=== PATIENT | female | born 2005 | race Caucasian/White ===

== ENCOUNTER 2025-04-29 18:23 | Emergency (ER) | payer OTHER, SELFPAY ==
[2025-04-29] VITALS (8 sets, daily range): BP systolic 110–129; BP diastolic 57–86; PULSE 107–126; RESP 14–18; TEMP 37.2–37.7; O2SAT 98–100
--- NOTE | ~2025-04-29 | US_ITS ---
EXAMINATION: Ultrasound pelvis, complete: DATE: 04/29/2025 INDICATION: Right lower quadrant pain. History of ovarian cyst. Last menstrual period on 04/15/2025. TECHNIQUE: Transabdominal pelvic ultrasound with Doppler. COMPARISON: None. FINDINGS: Normal size uterus measuring the length of 7.5 cm and a width of 4.2 cm. Endometrium measures 2 mm in thickness. Ovaries are normal in size measuring volume of 12 cc on the right and 7 cc on the left. 2 cm follicle in the right ovary. Perfusion noted in both ovaries. No free fluid. IMPRESSION: 1. Normal size uterus. No endometrial thickening. 2. Normal size ovaries. 2 cm follicle in the right ovary. Normal perfusion of both ovaries. 3. No free fluid in the pelvic cul-de-sac. Reviewed, dictated and finalized at location T. ONARY FUNCTION TECHNOLOGIST IMPRESSION: 1. Normal size uterus. No endometrial thickening. 2. Normal size ovaries. 2 cm follicle in the right ovary. Normal perfusion of b oth ovaries. 3. No free fluid in the pelvic cul-de-sac.
--- NOTE | ~2025-04-29 | CT_ITS ---
EXAMINATION: CT abdomen pelvis w con DATE: 04/29/2025 22:18 INDICATION: Right lower quadrant abdominal pain. TECHNIQUE: Computed tomography (CT) of the abdomen and pelvis was performed with 100 mL Omnipaque 350 intravenous contrast. Automated exposure control and iterative reconstruction technique were employed. The dose-length product was 350.81 mGy-cm. COMPARISON: Pelvis ultrasound 04/29/2025 FINDINGS: The visualized portions of lung bases demonstrate mild atelectasis. No pleural effusion. The heart size is normal. No pericardial effusion. The liver, gallbladder, spleen, pancreas, adrenal glands, and kidneys are normal. There are no dilated loops of bowel. The appendix is normal. There is physiologic fluid in the pelvis. There is dextroscoliosis of thoracic spine. IMPRESSION: 1. No etiology for the patient's symptoms. Reviewed, dictated and finalized at location E. ING MIXTURE CARRIER
--- OUTSIDE RECORDS SUMMARY | 2025-04-29 19:15 | XMS_ITS | Clinical Summary ---
Author Organization [facility] Address [address] [place] [address] Care Team Providers Care Underground Mining Section Foreman Name Role Phone Magdy Byrne MD Unavailable [phone] Parris Hein MD Primary Care Provider [phone] [facility],non-owned Affiliates and Associated Physician Practices is amultiple site organization consisting of ambulatory clinics and hospital sitesin [place], [place], [place] and [place]. This disclosure is being madepursuant to the Care Everywhere program and may not contain all information available regarding this patient. Last updated 18.[facility] Allergies No known active allergies Medications * This document contains information received from the source organization and may not represent a complete record from that organization. * Be aware that medications may not be up to date on this document. Alwaysverify current medications with the patient. melatonin 3 MG tabletIndicatio ns:Insomnia Take 10 mg by mouth at bedtime Reasons: Trouble Sleeping Active propranolol (INDERAL) 10 MG tablet Take 1 (one) tablet by mouth as needed 1 Active naproxen (NAPROSYN) 500 MG tablet TAKE 1 TABLET BY MOUTH TWICE A DAY WITH MEALS 2 Active lamoTRIgine (LAMICTAL) 100 MG tablet Take 1 (one) tablet by mouth at bedtime 2 Active DULoxetine (CYMBALTA) 60 MG capsule Take 1 (one) capsule by mouth at bedtime Delayed Release Active rizatriptan (MAXALT) 5 MG tablet Take 1 (one) tablet by mouth 2 times daily as needed for Migraine 9 tablet 3 2 Active Additional Information Patient not taking.Reported on 01/02/2024 baclofen (Lioresal) 20 MG tablet TAKE 1 TABLET (20 MG TOTAL) BY MOUTH 3 (THREE) TIMES DAILY FOR 30 DAYS. 2 Active cetirizine (ZyrTEC) 10 MG tablet Take 1 (one) tablet by mouth once daily 3 Active ferrous sulfate 325 (65 FE) MG tablet TAKE 1 TABLET BY MOUTH DAILY WITH BREAKFAST AVOID DAIRY FOR 1 HOUR, TAKE WITH CITRUS JUICE 3 Active buPROPion XL 24hr (Wellbutrin-XL) 150 MG tablet TAKE 1 TABLET EVERY DAY BY ORAL ROUTE IN THE MORNING. 3 Active vitamin D3 (Cholecalcifero l) 25 MCG (1000 UNITS) tablet TAKE 2 TABLETS (2,000 UNITS TOTAL) BY MOUTH DAILY Active Ergocalciferol (VITAMIN D2 PO) 76735 units every week by oral route. Active diazePAM (Valium) 5 MG tablet Take 1 (one) tablet by mouth every 6 hours as needed 2 Active etonogestrel (Nexplanon) 68 MG implant Inject by subcutaneous route. 4 Active hydrOXYzine HCl (Atarax) 25 MG tablet 25 mg as needed by oral route. 2 Active meloxicam (Mobic) 7.5 MG tablet Take 1 (one) tablet by mouth once daily 3 Active pseudoephedrine CR 12hr (Sudafed) 120 MG tablet Take 1 (one) tablet by mouth every 12 hours 4 Active Active Problems Patient Care Coordination No te Formatting of this note migh t be different from the original. Do you have any cultural preferences or concerns? No 09/14/21 Problem Noted Date Diagnosed Date Palpitations 04/22/2021 Post concussive syndrome 02/25/2021 Assessment & Plan (02/25/2021 5:46 PM CDT): Ej Vargas had a concussion in May of 2020. Initially had increased headaches, but they are now back to baseline. Over the last few months, she has had a worsening of her anxiety, however due to time elapsed from concussion, this is not likely to be secondary to her concussion. She was previously prescribed nortriptyline for headache prevention, but this medication was stopped in order to have better options to treat her anxiety disorder. - discussed sleep hygiene - continue to follow up with psychiatry regarding anxiety disorder - referred to Dr. Paez for headaches - recommended 25 minutes of cardiovascular exercise daily Generalized anxiety disorder 10/10/2020 Bipolar 1 disorder, mixed, moderate 10/10/2020 Severe episode of recurrent major depressive disorder, without psychotic features 09/26/2020 Patellofemoral arthralgia of both knees 03/22/20 18 Pain in joint, ankle and foot 01/02/2017 Resolved Problems Problem Noted Date Diagnosed Date Resolved Date Suicidal ideation 10/07/2020 10/09/2020 Social History Tobacco Use Types Packs/Day Years Used Date Smoking Tobacco: Never Passive Smoke Exposure: Yes Smokeless Tobacco: Never Tobacco Cessation:Counseling Given: Not Answered Alcohol Use Standard Drinks/Week Comments Never 0 (1 standard drink = 0.6 oz pur e alcohol) pt not verbalizing AUDIT-C Answer Date Recorded Q1: How often do you have a drink containing alc ohol? Never 06/04/2020 Average Number of Drinks Not on file 021 Frequency of Binge Drinking Not on file 05/22 PHQ-2 Answer Date Recorded PHQ2 TOTAL SCORE 2 10/07/2020 Comments No Sex and Gender Information Value Date Recorded Sex Assigned at Not on file Legal Sex Female 5:44 AM EMERGENCY PLANNER Gender Identity Not on file Sexual Orientation Not on file Last Filed Vital Signs Vital Sign Reading Time Taken Comments Blood Pressure 127/86 01/30/2024 1:02 PM CDT Pulse 105 01/30/2024 1:02 PM CDT Temperature 35.9 C (96.7 F) 01/02/2024 11:11 AM CDT Respiratory Rate 16 04/22/2021 10:10 AM EMERGENCY PLANNER Oxygen Saturation 99% 01/02/2024 11:11 AM CDT Inhaled Oxygen Concentration - - Weight 77.6 kg (171 lb) 01/30/2024 1:02 PM CDT Height 165.1 cm (5' 5) 01/02/2024 11:11 AM CDT Body Mass Index 28.46 01/02/2024 11:11 AM CDT Plan of Treatment Health Maintenance Due Date Last Done Comments HIV SCREENING 2020 HPV VACCINE (1 - 3-dose series) 2020 CHLAMYDIA/GONORRHEA SCREENING 2021 MENINGOCOCCAL (Group B) VACCINE SHARED DECISION-MAKING (1 of 2 - Standard) 2021 HEPATITIS C SCREENING 04/07/2023 DTAP/TDAP/TD VACCINES (1 - Tdap) 2024 HEPATITIS B VACCINE (1 of 3 - 19+ 3-dose series) 2024 COVID-19 VACCINE (3 - 2024-2 6 season) 2025 11/02/2020, 10/12/2020 INFLUENZA VACCINE (#1) 2025 ZOSTER VACCINE (1 of 2) 2055 HIB VACCINE Aged Out No longer eligi ble based on patient's age to complete this topic MENINGOCOCCAL GROUPS A/C/Y/W VACCINE Aged Out No longer eligible b ased on patient's age to complete this topic PNEUMOCOCCAL VACCINE Aged Out No long er eligible based on patient's age to complete this topic Insurance [facility] Advance Directives * Full Code (Latest Code Status on File) Date Activated Date Inactivated Comments 10/07/2020 12:01 PM 10/09/2020 3:56 PM * Full Code Date Activated Date Inactivated Comments 09/26/2020 4:28 PM 09/26/2020 8:47 PM Care Teams [employer] Foreman Relationship Specialty Start Date End Date Parris Hein MD [address] [place] [id number] PCP - General 02/14/22 Magdy Byrne MD [address] [place] [address] Pediatrics 11/12/20
--- OUTSIDE RECORDS SUMMARY | 2025-04-29 19:15 | XMS_ITS | Clinical Summary ---
Author Organization [facility] Address [address] [place] [address] Care Team Providers Care Province Archivist Name Role Phone Unavailable Primary Care Provider Unavailabl e Immunizations Immunization Administration Dates Next Due Covid-19, Mrna, Lnp-s, Pf, 30 Mcg/0.3 Ml Dose (P fizer) 11/02/2020,10/12/2020 Social History Tobacco Use Types Packs/Day Years Used Date Smoking Tobacco: Never Assessed Comments Unknown Sex and Gender Information Value Date Recorded Sex Assigned at Not on file Legal Sex Female 5:33 PM CDT Gender Identity Not on file Sexual Orientation Not on file Last Filed Vital Signs Vital Sign Reading Time Taken Comments Blood Pressure - - Pulse - - Temperature - - Respiratory Rate - - Oxygen Saturation - - Inhaled Oxygen Concentration - - Weight 58.1 kg (128 lb 1 oz) 11/02/2020 10:51 AM CDT Height - - Body Mass Index - - Plan of Treatment Health Maintenance Due Date Last Done Comments Hepatitis C Virus (HCV) Screening 2005 Human Papillomavirus (HPV) Immunization (2 - 2-dose series) 06/21/2017 12/19/2016 Meningococcal B Immunization (1 of 2 - Standard) 2021 Influenza Immunization (#1) 2025 SARS-COV-2 Immunization (3 - season) 2025 11/02/2020, 10/12/2020 Respiratory Syncytial Virus (RSV) Immunization (Adult) (1 - 1-dose 75+ series) 2080 Polio (IPV) Immunization Discontinued , 2005, 2005 Hepatitis B Immunization Completed 006, 2005, 2005, Additional history exists Pneumococcal Immunization Combined Completed 07/24/2006, 2005, 2005, Additional history exists Measles Mumps Rubella (MMR) Immunization Discontinued 04/12/2010, 07/24/2006 Varicella Immunization Completed 04/12/2010, 2005 DTaP/Tdap/Td Immunization Discontinued 2016, 04/12/2010, 04/01/2010, Additional history exists Hepatitis A Immunization Discontinued 017, 04/23/2007, 10/23/2006 Meningococcal Immunization (ACWY) Aged Out 12/19/2016 No longer eligible based on patient's age to complete this topic TdaP Immunization Completed 12/19/2016 Rotavirus Immunization Aged Out No lo nger eligible based on patient's age to complete this topic
[2025-04-29] MEDS: LACTATED RINGERS 1,000 ML 999 ML IV CONT ×2 (20:29→20:51)
[2025-04-29 20:35] LABS: BEDSIDEPREGUCG Negative (Negative)
[2025-04-29 20:37] LABS: Hematocrit 39.2 % (37.0-47.0); Hemoglobin 13.0 g/dL (12.0-15.0); Immature Granulocyte Percent A 0.2 % (0-0.5); Lymphocytes Absolute Auto 0.38 K/mm3 (0.9-3.2); Mean Corpuscular HGB Conc 33.2 g/dl (32-36); Mean Corpuscular Hemoglobin 31.7 pg (26-34); Mean Corpuscular Volume 95.6 fl (80-100); Nucleated Red Blood Cells Absolute Auto 0.000 K/mm3 (0.0-0.012); Nucleated Red Blood Cells Perc 0.0 % (0.0-0.2); Platelet Count Result 216 k/mm3 (150-375); Red Blood Count 4.10 M/mm3 (4.2-5.4); White Blood Count 4.3 K/mm3 (4.5-10.0)
[2025-04-29 20:41] LABS: Add Urine Microscopic? YES; Appearance Urine Clear (Clear); Glucose Urine UA Negative (Negative); Leukocyte Esterase Ur Trace LEU/UL (Negative); Nitrate Urine Negative (Negative); Non Pathogenic Casts 0-2; Specific Grav Ur 1.027 (1.001-1.035)
[2025-04-29 20:48] LABS: Alanine Aminotransferase 16 U/L (6-35); Albumin Level 4.6 g/dL (3.5-5.1); Alkaline Phosphatase 78 U/L (38-126); Anion Gap 10 mmol/L (4-12); Aspartate Amino Transferase 22 U/L (14-36); Bilirubin,Total 0.5 mg/dL (0.2-1.3); Blood Urea Nitrogen 7 mg/dL (7-17); Calcium 9.1 mg/dL (8.4-10.2); Carbon Dioxide 20 mmol/L (22-30); Chloride 104 mmol/L (98-107); Estimated CRCL calculation 100 ml/min; Estimated Glomerular Filt Rate > 60; Glucose 98 mg/dL (65-110); Potassium 3.6 mmol/L (3.4-5.0); Sodium 134 mmol/L (137-145); Total Protein 7.4 g/dL (6.3-8.2)
--- OUTSIDE RECORDS SUMMARY | 2025-04-29 20:48 | XMS_ITS | Clinical Summary ---
Author Organization [facility] Address [address] [place] [address] Care Team Providers Care Child Monitor Name Role Phone Magdy Byrne MD Unavailable [phone] Parris Hein MD Primary Care Provider [phone] Source Comments [facility],non-owned Affiliates and Associated Physician Practices is amultiple site organization consisting of ambulatory clinics and hospital sitesin [place], [place], [place] and [place]. This disclosure is being madepursuant to the Care Everywhere program and may not contain all information available regarding this patient. Last updated 18.[facility] Allergies No known active allergies Medications * [...] MOUTH DAILY Active Ergocalciferol (VITAMIN D2 PO) 71365 units every week by oral route. Active [...] on file Legal Sex Female 5:44 AM HEALTHCARE CONSULTANT Gender Identity Not on file Sexual Orientation Not on file Last Filed Vital Signs Vital Sign Reading Time Taken Comments Blood Pressure 127/86 01/30/2024 1:02 PM CDT Pulse 105 01/30/2024 1:02 PM CDT Temperature 35.9 C (96.7 F) 01/02/2024 11:11 AM CDT Respiratory Rate 16 04/22/2021 10:10 AM HEALTHCARE CONSULTANT Oxygen Saturation 99% 01/02/2024 11:11 AM CDT [...] patient's age to complete this topic Insurance [facility] Advance Directives * Full Code (Latest Code Status on File) Date Activated Date Inactivated Comments 10/07/2020 12:01 PM 10/09/2020 3:56 PM * Full Code Date Activated Date Inactivated Comments 09/26/2020 4:28 PM 09/26/2020 8:47 PM Care Teams Child Monitor Relationship Specialty Start Date End Date Parris Hein MD [address] [place] [id number] PCP - General 02/14/22 Magdy Byrne MD [address] [place] [address] Pediatrics 11/12/20
--- OUTSIDE RECORDS SUMMARY | 2025-04-29 20:48 | XMS_ITS | Data Portability ---
Author Organization [employer] , [facility] Address [address] [place] [address] Assessment Encounter Date Assessment Date Assessment LastModified by Organization Details LastModified Time 07/27/2023 07/27/2023 The patient is an 18-year-old female seeking a reliable contraceptive method. She has chosen to have the Nexplanon device inserted. She has been informed of the possible side effects, such as abnormal bleeding and potential signs of infection. The patient understands the instructions given and has no further questions at this time. Not available 07/27/2023 14:43:51 Plan of Treatment Reminders Order Date Submit Date Provider Last Modified By Organization Details Last Modified Time Details Appointments None recorded. Lab bacterial vaginosis + vaginitis panel, vaginal 2023 [facility], [address] [place] [address], [address], 16:14:13 Referral None recorded. Procedures None recorded. Surgeries None recorded. Imaging US, transvagina l 2023 SHAKIRA Not available 20:13:01 Medication Orders ibuprofen 600 mg tablet 2023 [facility] [id number] [facility] [place] [address] [place], [address], 4 12:11:16 ibuprofen 800 mg tablet 2023 024 [facility] [place], [address], 15:23:45 Nexplanon 68 mg subdermal implant 2023 024 [facility] [place], [address], 14:51:05 Patient TargetsNo targets recorded. Patient Instructions Encounter Date Encounter Id Patient Instructions Last Modified By Organization Details Last Modified Time 07/27/2023 [id number] implant for marylin h control: care instructions Not available 07/27/2023 14:51:05 - Use protection for two weeks after the Nexplanon insertion - Expect abnormal bleeding for the next six to nine months - Contact the clinic if bleeding persists for more than 14 days or if signs of infection are present - Avoid lifting heavy objects after the procedure - Follow up as needed or if any concerns arise [email or web address] Not available 07/27/2023 14:41:13 I discussed the differential diagnosis, risks, benefits, and follow-up care for the Nexplanon insertion with the patient. We also discussed the possibility of abnormal bleeding and signs of infection. The patient was instructed to use protection for two weeks and to expect irregular bleeding for the next six to nine months. I explained that if bleeding persists for more than 14 days, it will require further evaluation. Not available 07/27/2023 14:43:55 04/02/2024 [id number] dysmenorrhea education Not available 04/02/2024 12:11:13 painful menstrua l cramps in teens: care instructions Not available 04/02/2024 12:11:13 painful menstrua l cramps: care instructions Not available 04/02/2024 12:11:13 Reason for Referral None Reported. Results Created Date Observation Date Name Description Value Unit Range Abnormal Flag Note LastModifiedBy Organization Detail LastModifiedTime 03/19/20 24 03/20/2024 VAGIN ITIS PLUS STD PANEL bacterial vaginosis BV neg negati ve normal Not Available [facility] [address] [place], [address], 03/20/2024 16:14:13 03/19/20 24 03/20/2024 VAGIN ITIS PLUS STD PANEL jewels species C. spp neg negati ve normal Not Available [address], [address], 03/20/2024 16:14:13 03/19/20 24 03/20/2024 VAGIN ITIS PLUS STD PANEL jewels glabrata C. gla neg negati ve normal Not Available [address], [address], 03/20/2024 16:14:13 03/19/20 24 03/20/2024 VAGIN ITIS PLUS STD PANEL trichomonas vaginalis CV/TV TRICH neg negati ve normal Not Available [address], [address], 03/20/2024 16:14:13 03/19/2003/20/2024 VAGIN ITIS PLUS STD PANEL chlamydia trachomatis CT neg negati ve normal This repor t is inten ded for us in clini akira monit oring and manag ement of patie nts. It is not inten ded for use in medic al-le gal appli catio n. Not Available [address], [address], 03/20/2024 16:14:13 03/19/20 24 03/20/2024 VAGIN ITIS PLUS STD PANEL neisseria gonorrhoeae GC neg negati ve normal This repor t is inten ded for us in clini akira monit oring and manag ement of patie nts. It is not inten ded for use in medic al-le gal appli catio n. Not Available [address], [address], 03/20/2024 16:14:13 04/02/20 24 04/02/2024 US, trans vagin al No observ ation record ed. [address], [place], [address], 04/02/2024 21:32:42 Result Notes None recorded. Procedures Surgical History Date Name Laterality Status Provider Name and Address Organization Details Recorded Time Nexplanon Insertion completed KAVON BRADY, CONDENSER TESTER [address] [facility], [place], [address], [facility] Pinterest 07/27/2023 14:43:22 Imaging Results None recorded. Procedure Notes None recorded. Medical Equipment None Reported. Allergies No known drug allergies Medications Name Sig Start Date Stop Date Status Note LastModified by Organization Details LastModified Time cetirizin e 10 mg tablet TAKE 1 TABLET BY MOUTH EVERY DAY active Not Available Not Available No t Available ibuprofen 800 mg tablet TAKE 1 TABLET 3 TIMES A DAY BY ORAL ROUTE. active Not Available Not Available No t Available meloxicam 7.5 mg tablet TAKE 1 TABLET BY MOUTH EVERY DAY 10/31 completed Not Available Not Available Not Available bupropion HCl 100 mg tablet Take 150 mg every day by oral route. 10/31 completed Not Available Not Available Not Available benzonata te 100 mg capsule TAKE 1 CAPSULE BY MOUTH THREE TIMES A DAY NEEDED FOR COUGH 10/31 completed Not Available Not Available Not Available ferrous sulfate 325 mg (65 mg iron) tablet TAKE 1 TABLET BY MOUTH DAILY WITH BREAKFAS T AVOID DAIRY FOR 1 HOUR, TAKE WITH CITRUS JUICE 03/19 completed Not Available Not Available Not Available hydroxyzi ne HCl 25 mg tablet Take 25 mg as needed by oral route. 03/19 completed Not Available Not Available Not Available mupirocin 2 % topical ointment APPLY TOPICALL Y 3 TIMES A DAY FOR 5 DAYS 06/13 completed Not Available Not Available Not Available ibuprofen 600 mg tablet Take 1 tablet every 6 hours by oral route as needed. 2023 active Start 1-2 days prior to anticipa girish onset of menses, take on a fixed schedule , and continue for 2-3 days during menses. Should not be taken for more than 4-6 days consecut ively. Not Available Not Available Not Available ferrous sulfate 325 mg (65 mg iron) tablet,de layed release TAKE 1 TABLET BY MOUTH DAILY WITH BREAKFAS T 10/31 completed Not Available Not Available Not Available Vitamin D2 1,250 mcg (50,000 unit) capsule Take 44204 units every week by oral route. 10/31 completed Not Available Not Available Not Available propranol ol 20 mg tablet TAKE 1 TABLET BY MOUTH TWICE A DAY DIRECTED 03/19 completed Not Available Not Available Not Available fluticaso ne propionat e 50 mcg/actua tion nasal spray,agus pension INHALE 1-2 PUFFS IN EACH NOSTRIL ONCE A DAY FOR 90 DAYS 06/13 completed Not Available Not Available Not Available lamotrigi ne 100 mg tablet TAKE 1 TABLET BY MOUTH EVERY DAY active Not Available Not Available No t Available naproxen 500 mg tablet Take 500 mg as needed by oral route. 10/31 completed Not Available Not Available Not Available rizatript an 5 mg tablet TAKE 1 (ONE) TABLET BY MOUTH 2 TIMES DAILY NEEDED FOR MIGRAINE 10/31 completed Not Available Not Available Not Available bupropion HCl XL 150 mg 24 hr tablet, extended release TAKE 1 TABLET BY MOUTH EVERY DAY IN THE MORNING active Not Available Not Available No t Available duloxetin e 60 mg capsule,d elayed release TAKE 1 CAPSULE BY MOUTH EVERY DAY active Not Available Not Available No t Available cholecalc iferol (vitamin D3) 25 mcg (1,000 unit) tablet TAKE 2 TABLETS (2,000 UNITS TOTAL) BY MOUTH DAILY 10/31 completed Not Available Not Available Not Available Vitamin D3 125 mcg (5,000 unit) tablet TAKE 1 CAPSULE BY MOUTH ONE TIME PER WEEK active Not Available Not Available No t Available Nexplanon 68 mg subdermal implant Inject by subcutan eous route. 2023 active Document procedur e details in the PE - Procedur e SectionD ocument Lot # Exp Date and click Administ ered in this A/P order Not Available Not Available Not Available Vitals Date Recorded Body height Body mass index (BMI) [Percentile] Per age and sex Body mass index (BMI) Body weight Body temperature Systolic And Diastolic Provider Name and Address Organization Details Last Updated DateTime 4 162.56 cm 90 % 27.3 kg/m2 82579.4 7 g 97.6 [degF] 110/66 mm[Hg] Maria Del Rosario Tse [facility] Pinterest 4 10:30:08 Date Recorded Body height Body mass index (BMI) Body mass index (BMI) [Percentile] Per age and sex Body weight Body temperature Systolic And Diastolic Provider Name and Address Organization Details Last Updated DateTime 4 162.56 cm 27.1 kg/m2 89 % 76685.1 6 g 97.9 [degF] 110/68 mm[Hg] Maricel Randall [facility] 4 14:25:38 Date Recorded Body height Body mass index (BMI) [Percentile] Per age and sex Body mass index (BMI) Body weight Systolic And Diastolic Provider Name and Address Organization Details Last Updated DateTime 4 162.56 cm 90 % 27.5 kg/m2 17151.7 8 g 110/68 mm[Hg] Kirti Thomas johnson [facility] 4 10:12:07 Date Recorded Body height Body mass index (BMI) Body mass index (BMI) [Percentile] Per age and sex Body weight Body temperature Systolic And Diastolic Provider Name and Address Organization Details Last Updated DateTime 4 162.56 cm 29.9 kg/m2 94 % 59086.7 9 g 97.5 [degF] 102/70 mm[Hg] Arcelia Binghameryn [facility] 4 13:57:26 Date Recorded Body height Provider Name an d Address Organization Details Last Updated DateTime 04/02/2024 162.56 cm Zulema Mares [facility] 04/02/2024 11:32:39 Date Recorded Body mass index (BMI) [Percentile] Per age and sex Body mass index (BMI) Body weight Body temperature Systolic And Diastolic Provider Name and Address Organization Details Last Updated DateTime 4 94 % 29.7 kg/m2 40579.2 g 97 [degF] 108/68 mm[Hg] Jennifer Leonel [facility] 4 11:55:55 Social History Question Answer Notes LastModified by Organizat ion Details LastModified Time Tobacco Smoking Status Never Smoker Maria Del Rosario suresh, [facility] 06/13/2023 10:26:21 Are You Blind Or Do You Have Difficulty Seeing? No [email or web address] Information not available 06/13/2023 Are You Deaf Or Do You Have Serious Difficulty Hearing? No Information not available 06/13/2023 What Type Of Diet Are You Following? REGULAR [email or web address] Information not available 06/13/2023 What Is The Highest Grade Or Level Of School You Have Completed Or The Highest Degree You Have Received? AT03480-1 [email or web address] Information not available 06/13/2023 How Many Children Do You Have? 0 [email or web address] Information not available 06/13/2023 Are There Any Occupational Health Risks Where You Work? No Information not available 06/13/2023 What Is Your Relationship Status? Single [email or web address] Information not available 06/13/2023 Are You Sexually Active? Yes Information not available 06/13/2023 What Types Of Sporting Activities Do You Participate In? None [email or web address] Information not available 06/13/2023 Have You Used IV Drugs? No [email or web address] Information not available 06/13/2023 Sex: Female Functional Status Question Answer Note LastModified by Organizat ion Details LastModified Time Do you use any illicit or recreational drugs? No [email or web address] Information not available 06/13/2023 Do you or have you ever used any other forms of tobacco or nicotine? No [email or web address] Information not available 06/13/2023 What is your level of alcohol consumption? None [email or web address] Information not available 06/13/2023 Are you currently employed? Yes [email or web address] Information not available 06/13/2023 What is your occupation? [employer] [email or web address] Information not available 06/13/2023 What is your exercise level? Occasional [email or web address] Information not available 06/13/2023 Mental Status None recorded. Family History Relationship Description Onset Age of this Age Resolved Age Notes LastModified by Organization Details LastModified Time Father Hypercholest [email or web address] Not available 2023 10:26:19 Father Depressive disorder [email or web address] Not available 2023 10:26:19 Paternal Grandmother Malignant neoplastic disease [email or web address] Not available 2023 10:26:19 Paternal Grandmother Malignant neoplasm of ovary [email or web address] Not available 2023 10:26:19 Mother Depressive disorder [email or web address] Not available 2023 10:26:19 Mother Hypertensive disorder [email or web address] Not available 2023 10:26:19 Unspecified Relation Malignant neoplasm of breast [email or web address] Not available 2023 10:26:19 Unspecified Relation Endometrial carcinoma [email or web address] Not available 2023 10:26:19 Maternal Grandmother Depressive disorder [email or web address] Not available 2023 10:26:19 Sister Depressive disorder Not available 2023 10:26:19 Paternal Grandfather Cerebrovascu lar accident [email or web address] Not available 10:26:19 Medical History Condition Response Anxiety Disorder Y Anemia Y Bipolar Disorder Y Panic Attacks Y Depression Y Asthma Y Seasonal allergies Y Gynecological History Statement/Question Response Flow Moderate Date of last HPV Date of LMP 03/29/2024 HPV Vaccine N Duration of Flow (days) 7 Most Recent Mammogram Current Control Method Implant Age at Menarche 11 Date of Last Colonoscopy Most Recent Bone Density Frequency of Cycle (Q days) 21 Date of Last Pap Smear Obstetrics History GPAL:G 0 P 0 0 0 0 Immunizations Vaccine Type Date Status Note Provider Nam e and Address Organization Details Recorded Time COVID-19, mRNA, LNP-S, PF, 30 mcg/0.3 mL dose 10/12/2020 completed Maria Del Rosario suresh, [employer] [facility] 06/13/2023 10:26:21 COVID-19, mRNA, LNP-S, PF, 30 mcg/0.3 mL dose 11/02/2020 completed Maria Del Rosario Tse null, [facility] 06/13/2023 10:26:21 Past Encounters Encounter ID Performer Location Encounter Start Date Encounter Closed Date Diagnosis/Indication Diagnosis SNOMED-CT Code Diagnosis ICD10 Code Diagnosis IMO Codes Diagnosis Note [id number] YORDAN REDD [facility] [address] [place] [address] 06/13/2023 10:20:30 06/14/2023 11:50:48 Contraception education 951235212 Z30.09 Pt comes in for Contracept prosper Counseling . - - Discussed options including OCPs, NuvaRing, Nexplanon, hormonal and copper IUDs. Discussed risks, efficacy, non contracept prosper benefits, and side effects of each option, including risk of VTE with hormonal contracept ion and uterine perforatio n, expulsion, infection with IUD.--Disc ussed that contracept ion will not protect against STI's. Encourged Condom use. Discussed the various types of Infections and STIs, related symptoms and the potential consequenc es (including effects on fertility) of STI. Reviewed ways to limit exposure and prevention techniques .-- Declines STI testing today.-- Pt would like to proceed with BRENDAN Webb case sent. [id number] KAVON BRADY [facility] [address] [place] [address] 07/27/2023 14:04:20 07/27/2023 16:33:02 Implantation of subcutaneous contraceptive [id number] Z30.017 The patient is here for the insertion of a Nexplanon contracept prosper device. The procedure is explained in detail, including the possible side effects and necessary precaution s to take. The patient is advised to use protection for two weeks and to expect abnormal bleeding for the next six to nine months. She is instructed to contact the clinic if bleeding lasts longer than 14 days or if she experience s any signs of infection. [id number] YORDAN REDD [facility] [address] [place] [address] 11/01/2023 09:53:11 11/01/2023 11:35:34 Abnormal uterine bleeding [id number] 9100 N93.9 Pt comes in for AUB with Nexplanon - - Nexplanon placed: 07/2023-- Reassured about common nature of AUB with Nexplanon, no half-way effects.-- Discussed options: NuvaRing, JOHN Taper, or removal of Nexplanon and alternativ e method ofcontrace ption.-- NuvaRing and JOHN taper (3, 3, 2, 2, 1, 1; 3 pills 1st day, 3 pills 2nd day, 2 pills 3rd day, 2 pills 4th day;at least 20 mcg Estrogen) followed by a withdrawal bleed to potentiall y stabilize endometriu m. Mayrepeat 2 times.-- No evidence of anemia, bleeding light-- Pt interested in watching bleeding at this time as it is just spotting. If bleeding gets heavier and last more than 14 days patient will call and let HCP know if she wants JOHN taper, Nuvaring or estradiol. Greater than thirty minutes spent with patient in consultati on (>50% face-to-fa ce). Patient labs and notes were reviewed. Patient questions were answered. Additional patient care was coordinate sanjana [id number] YORDAN REDD [facility] [address] [place] [address] 03/19/2024 13:44:11 03/20/2024 10:37:48 Pain in pelvis [id number] R10.2 Pt is here with pelvic pain.--I have recommende d pelvic imaging to patient--P ossible etiology of pain reviewed with patient. Possible GI and GLOVE CLEANER causes reviewed-- I have reviewed management options of expectant, medical or surgical management .--Patient to follow up based on results and plan. Pt is aware that if deciding with surgical management she will need to follow up with physician. -Schedule pelvic ultrasound -PA case sent-[facility] today [id number] MARGUERITE MEADOWS [facility] [address] [place] [address] 04/02/2024 10:48:50 04/02/2024 15:54:30 Pain in pelvis [id number] R10.2 Discussed TVUS finding of Collapsed cyst on left ovary and fluid in CDS. Pt states is not having any pain now and it is only related to menstrual cycle. Discussed benign nature of ovarian cysts Discussed typical course of pain for a few wks while body absorbs cyst fluid, no recommenda tion for surgical interventi on at this time. - Recommend ibuprofen or naproxen PRN for pain - Reviewed torsion precaution s -RTC as needed Dysmenorrhea [id number] N 94.6 Pt endorses intermitte nt RLQ pain that during her cycle each month. States that pain is only during menses. Discussed Ibuprofen 800mg TID Start 1-2 days prior to anticipate d onset of menses, take on a fixed schedule, and continue during menses. Should not be taken for more than 6 days consecutiv thom. Would like patient to try this x3 months, if this does not help with dysmenorrh ea then encouraged pt to return to clinic. Health Concerns Section Related Observation LastModified by Organization David post LastModified Time None Recorded Concern Status LastModified by Organization Details LastModified Time None Recorded Advance Directives Directive None Recorded Payers Insurance Date Sequence Insurance Name Policy Number Policy Marino Covered Member ID Marino Member ID Guarantor Name 05/07/2024 1 [facility] (MEDICAID HMO) [id number] Willow Luu [id number] Willow Luu Notes Date Note Type Note Provider Name and Address Organization Details Recorded Time 4 text/html ROS as noted in the HPI Patient presents to discuss control. Patient has not tried previous control in the past. LMP:05/31/2023 . Patient states cycles are regular. Denies any heavy bleeding or pain with cycles. Denies any concerns for STDs. Declines STD testing. Understands that UPT will be ran prior to starting control. Admits to being sexually active, but only oral sex. Denies any penetration. YORDAN REDD [facility] [place], [address], [facility] 06/13/2023 10:43:27 4 text/html ROS as noted in the HPI The 18-year-old female patient presents for the insertion of a Nexplanon contraceptive device. She reports no unprotected sex in the past few weeks and no prior use of control. She is informed about the effectiveness of the Nexplanon device after seven days and advised to use protection for two weeks. She is also informed about the possibility of abnormal bleeding for the next six to nine months and to contact the clinic if bleeding persists for more than 14 days. The patient works at a [employer] and is advised not to lift anything heavy after the procedure. YORDAN REDD [address] [place], [address], [facility] 07/27/2023 14:51:08 4 text/html ROS as noted in the HPI Patient had Nexplanon put in 07/2023. She states her periods have been monthly until this past month. She had a period for about a week, was off for about 3 days and started bleeding again. She states it is a mixture of spotting at times and heavy bleeding at tines, She denies any cramping or headaches. YORDAN REDD [address] [place], [address], [facility] 11/01/2023 10:40:05 4 text/html Pelvic PainReported by PatientHPIFor associated symptoms, patient reportsabdominal pain. For location, patient reportsrightandlower abdominal. For onset/timing, patient reports>6 months. For duration, patient reportsintermittent. For quality, patient reportscramping.ROS as noted in the HPI Pt reports intermittent RLQ pain that seems to go with her cycle each month. Has noticed is more since she had the Nexplanon placed. YORDAN REDD [address] [place], [address], [facility] [employer] [facility] 03/19/2024 14:52:39 4 text/html Pelvic PainReported by PatientHPIFor associated symptoms, patient reportsabdominal painbut reportsno back pain,no chills,no constipation,no diarrhea,no vaginal discharge,no pain with urination,normal emptying of bladder,no feelings of urgency,no blood in the urine,normal libido,no fever,no nausea,no vomiting,no nocturia,no sexual abuse,no ectopic pregnancies,no endometriosis,no urinary frequency,no vaginal itching or irritation, andno dyspareunia. For location, patient reportsrightandlower abdominal. For onset/timing, patient reports>6 months. For duration, patient reportsintermittent. For quality, patient reportssharp,aching, andcramping. For severity, patient reportsmoderate. For context, patient reportslmp (03/29/24).ROS as noted in the HPI Willow presents for reports intermittent RLQ pain that seems to go with her cycle each month. Has noticed is more since she had the Nexplanon placed. MARGUERITE MEADOWS [address] [facility], [place], [address], [facility] 04/02/2024 15:41:16 OBGyn Episode No OBEpisode recorded.
--- NOTE | 2025-04-29 20:51 | ED_ITS ---
HPI - General Adult General Chief complaint: Abdominal Pain Stated complaint: abd pain; RLQ Time Seen by Provider: 04/29/25 20:18 History of Present Illness HPI narrative: 20-year-old female present to the emergency department for evaluation for right lower quadrant pain this been going on since Monday. Patient felt that her symptoms are worsening over Monday and through today. Patient does have history of ovarian cyst. Patient describes right lower quadrant pain and does also have some symptoms increased urination today. At time of evaluation patient appears uncomfortable. Patient declined medications for pain control. Patient does have right lower quadrant tenderness to palpation. Related Data Allergies Allergy/AdvReac Type Severity Reaction Status Date / Time No Known Allergies Allergy Unverified 12/01/16 13:32 Review of Systems 2 Review of Systems: All systems reviewed & are unremarkable except as noted in HPI and below Exam 2 Narrative: APPEARANCE: Well appearing, no pain, no distress, well-nourished. HEAD: normocephalic, atraumatic. EYES: PERRLA/EOMI, conjunctivae clear. NOSE: Normal no drainage THROAT: Pharynx clear, no exudate. NECK: Supple. No adenopathy, no masses. RESPIRATORY: Airway patent, respirations nonlabored. Clear to auscultation bilaterally, no rales, rhonchi, wheezing. CARDIOVASCULAR: Regular rate and rhythm without murmurs rubs or gallops. ABDOMINAL: Lower abdominal tenderness to palpation MUSCULOSKELETAL: Moves all extremities. Strength/ROM intact, No edema, No calf tenderness. NEURO: Alert. Cranial nerves II through XII intact. Good gait. Good coordination SKIN: Warm, dry. Normal Color Course Vital Signs Vital signs: Vital Signs Temperature 98.9 F 04/29/25 19:00 Pulse Rate 112 H 04/29/25 19:00 Respiratory Rate 18 04/29/25 19:00 Blood Pressure 128/72 04/29/25 19:00 Pulse Oximetry 100 04/29/25 19:00 Oxygen Delivery Room Air 04/29/25 19:00 Temperature 99.9 F H 04/29/25 20:04 Pulse Rate 119 H 04/29/25 21:30 Respiratory Rate 14 04/29/25 21:30 Blood Pressure 121/74 04/29/25 21:30 Pulse Oximetry 100 04/29/25 21:30 Oxygen Delivery Room Air 04/29/25 19:00 MDM MDM Narrative Medical decision making narrative: 20-year-old female presents emergency department for evaluation for right lower quadrant abdominal pain. Patient is currently afebrile with no leukocytosis and hemoglobin of 13.0. INR of 1.1. No significant abnormalities on her CMP with normal AST ALT alk-phos. UA was positive for ketones leukocyte esterase and did have some bacteria. Patient's urine was negative. Ultrasound was ordered and showed no evidence of ovarian torsion. Patient was still having persistent pain so CT scan was ordered to evaluate for acute appendicitis. CT scan showed no acute intra-abdominal abnormality. Urine culture will be ordered and patient will be started on antibiotics and she is complaining of urinary symptoms. Patient was advised to take ibuprofen for pain control Tylenol for additional pain control. All questions concerns were addressed patient family are comfortable plan for discharge and close follow-up. Differential Diagnosis Differential Diagnosis: Ovarian torsion, ovarian cyst, appendicitis, ureteral calculi, urinary tract infection Lab Data [facility] Lab Attestation statement: I personally reviewed the patient's lab results. 04/29/25 20:29 04/29/25 20:29 Labs: Lab Results 04/29/25 04/29/25 Range/Units 20:29 20:33 WBC 4.3 L (4.5-10.0) K/mm3 RBC 4.10 L (4.2-5.4) M/mm3 Hgb 13.0 (12.0-15.0) g/dL Hct 39.2 (37.0-47.0) % MCV 95.6 (80-100) fl MCH 31.7 (26-34) pg MCHC 33.2 (32-36) g/dl RDW 12.5 (11.5-14.5) % Plt Count 216 (150-375) k/mm3 MPV 10.8 H (7.4-10.4) fl Immature Gran % (Auto) 0.2 (0-0.5) % Neut % (Auto) 75.5 H (45.5-73.1) % Lymph % (Auto) 8.9 L (18.3-44.2) % [place] % (Auto) 14.7 H (2.6-8.5) % Eos % (Auto) 0.2 (0-4.4) % Baso % (Auto) 0.5 (0.2-1.2) % Lymph # (Auto) 0.38 L (0.9-3.2) K/mm3 [place] # (Auto) 0.6 (0.1-0.6) K/mm3 Eos # (Auto) 0.0 (0-0.3) K/mm3 Baso # (Auto) 0.0 (0.0-0.1) K/mm3 Abs Immat Gran (auto) 0.01 (0.00-0.031) K/mm3 Absolute Neuts (auto) 3.2 (1.3-6.7) K/mm3 Absolute Nucleated RBC 0.000 (0.0-0.012) K/mm3 Nucleated RBC % 0.0 (0.0-0.2) % PT 14.6 (11.1-14.7) Seconds INR 1.1 APTT 32.0 (22.3-36.8) Seconds Sodium 134 L (137-145) mmol/L Potassium 3.6 (3.4-5.0) mmol/L Chloride 104 (98-107) mmol/L Carbon Dioxide 20 L (22-30) mmol/L Anion Gap 10 (4-12) mmol/L BUN 7 (7-17) mg/dL Creatinine 0.80 (0.7-1.0) mg/dL Estim Creat Clear Calc 100 ml/min Estimated GFR > 60 (59 - ) Glucose 98 (65-110) mg/dL Calcium 9.1 (8.4-10.2) mg/dL Total Bilirubin 0.5 (0.2-1.3) mg/dL AST 22 (14-36) U/L ALT 16 (6-35) U/L Alkaline Phosphatase 78 (38-126) U/L Total Protein 7.4 (6.3-8.2) g/dL Albumin 4.6 (3.5-5.1) g/dL Urine Color Dark yellow (Yellow) Urine Appearance Clear (Clear) Urine pH 6.0 (5.0-9.0) Ur Specific [place] 1.027 (1.001-1.035) Urine Protein 1+ H (Negative) mg/dL Urine Glucose (UA) Negative (Negative) mg/dL Urine Ketones 2+ H (Negative) mg/dL Ur Blood (Man) Negative (Negative) Urine Nitrate Negative (Negative) Urine Bilirubin Negative (Negative) Urine Urobilinogen 1.0 (<2.0) mg/dL Leukocyte Esterase Rfl Trace H (Negative) NELA/UL Urine RBC 3-5 H (0-2) /hpf Urine WBC 6-10 H (0-3) /hpf Ur Squamous Epith Cells Occasional (Few) /hpf Urine Bacteria 1+ H /hpf Urine Casts 0-2 POC Urine HCG, Qual Negative (Negative) Imaging Data Radiologist's impression: ITS Impressions Pelvis Ultrasound 04/29/25 21:18 IMPRESSION: 1. Normal size uterus. No endometrial thickening. 2. Normal size ovaries. 2 cm follicle in the right ovary. Normal perfusion of both ovaries. 3. No free fluid in the pelvic cul-de-sac. Overnight read CT abdomen pelvis contrast impression: No acute intra-abdominal abnormality. No bowel obstruction or inflammation. Normal appendix. Moderate to large stool burden. No hydronephrosis or renal calculus. Right ovarian 2.7 cm cyst, left ovarian 2.2 cm cyst. Small pelvic fluid. Correlate with pelvic ultrasound is warranted. Discharge Plan Discharge Clinical Impression: Abdominal pain, Dysuria, Constipation Patient Disposition: Home Condition: Stable Instructions: Antibiotic Form, Urinary Tract Infection in Women (DC), Abdominal Pain (ED) Additional Instructions: Antibiotic as directed until completed. Have close follow-up with your primary care physician. I do recommend Tylenol and ibuprofen for pain control. If you have any worsening symptoms or questions or concerns then please call or return to the emergency department. Patient Language: Occitan Prescriptions: New cephalexin 500 mg capsule 500 mg PO Q8H 7 Days Qty: 21 0RF cephalexin 500 mg capsule 500 mg PO Q8H 7 Days Qty: 21 0RF Follow-up/Referrals: PHYSICIAN,HOSPITALIST NOCTURNIST PHYSICIAN [Primary Care Provider, Internal Medicine]
[2025-04-29 20:53] LABS: INR 1.1; Prothrombin Time 14.6 Seconds (11.1-14.7)
[2025-04-29 20:54] LABS: Partial Thromboplastin Time 32.0 Seconds (22.3-36.8)
[2025-04-29] MEDS: ACETAMINOPHEN 500 MG TABLET 1000 MG PO (21:15)
[2025-04-29] MEDS: CEPHALEXIN 500 MG CAPSULE PO (23:15)
== END 2025-04-29 23:21 | disposition home or self-care (01) ==
PROVIDERS: Emergency Provider Emergency Medicine
DX: R10.31 Right lower quadrant pain (principal); R30.0 Dysuria; K59.00 Constipation, unspecified
CPT/HCPCS: 36415; 74177; 76856; 80053; 81001; 81025; 85025; 85610; 85730; 87086; 96360; 99284; A9270; J7120; Q9967